=== PATIENT | male | born 1945 | race Caucasian/White ===

== ENCOUNTER 2017-06-19 06:00 | Day surgery (SDC) | payer MEDICARE, BC ==
[2017-06-18 17:54] VITALS: BMI 33.0
[2017-06-19] MEDS ORDERED: Phenylephrine 2.5% Ophth Soln 5 ML BOT ONE (06:13)
[2017-06-19] MEDS ORDERED: Cyclopentolate 1% Opth Drop 2 ML BOT ONE (06:13)
[2017-06-19] MEDS ORDERED: Fluorouracil 100 MG, Enoxaparin Sodium 25 MG, EPINEPHrine 0.3 MG in Ophthalmic Irrigati... IVPB SCH (06:14)
[2017-06-19] MEDS ORDERED: Midazolam HCl 2 mg/2 ml Vial ONE (06:29)
[2017-06-19] MEDS ORDERED: Lidocaine 2% 10 ML INJ ONE (06:29)
[2017-06-19] MEDS ORDERED: PROPOFOL 20 ML ONE (06:29)
[2017-06-19] MEDS ORDERED: Fentanyl 100 MCG/2 ML VIAL ONE (06:29)
--- NOTE | 2017-06-19 09:01 | OP ---
DATE OF PROCEDURE: 06/19/2017 PREOPERATIVE DIAGNOSIS: Macular hole rhegmatogenous retinal detachment, left eye. POSTOPERATIVE DIAGNOSIS: Macular hole rhegmatogenous retinal detachment, left eye. PROCEDURE: Complex retinal detachment repair, left eye. SURGEON: Dr. Ron Ramírez ANESTHESIA: Local with monitored anesthesia care. COMPLICATIONS: None. PROCEDURE IN DETAIL: The patient was identified in the preoperative holding area. Appropriate infor med consent for the planned surgical procedure on of the left eye had been obtained, the patient was transported to the operative suite. Appropriate cardiopulmonary monitoring was established. Local a nesthesia was obtained using retrobulbar and modified Van lid block using 50:50 mixture of 4% lidocai ne and 0.75% bupivacaine. The patient was prepped and draped in the usual sterile manner for ophthal daniel surgery on the left eye. Lid speculum was placed in the left eye. The 25-gauge trocar was place d in conjunctiva and sclera supratemporally, inferotemporally, and supranasally. Infusion line was p laced inferotemporally. Light pipe and vitreous cutter were inserted into the eye. Core vitrectomy was performed. Vitreus base was trimmed back 360 degrees using wide field viewing system. Retinal d etachment was noted at the 12 o'clock with a tear at 12 o'clock. Indocyanine green dye was infused i nto the posterior pole x1, identifying the epiretinal membrane and the internal limiting membrane. T his was elevated using membrane scraper and peeled from the macula in 1 piece. Attention was turned superior to the macular hole, the flap on the posterior pole was trimmed and all vitreous traction wa s removed. Drain retinotomy was created in the most posterior aspect of the retinal detachment. Com plete air fluid exchange was performed with 10 minutes being allowed for fluid to drain posteriorly. A 360 laser was placed using endolaser delivery device. A 28% sulfur hexafluoride gas was infused i nto the eyes. Trocars were removed. Supranasal sclerotomy was sutured closed. Eye was noted to oth erwise, hold pressure well. Retrobulbar Kenalog and antibiotic ointment was placed and the eye was p atched and shielded. The patient was taken to the postoperative recovery unit in good condition havi ng suffered no immediate perioperative complications. DISCHARGE INSTRUCTIONS: The patient was instructed to keep patch and shield on, avoid flat on back p ositioning advised to remain head up, and follow up in the morning with Dr. Ramírez.
[2017-06-19] MEDS ORDERED: Lidocaine 1% PF 5 ML VIAL ONE (16:32)
[2017-06-19] MEDS ORDERED: PROPOFOL 200 MG/20 ML VIAL ONE (16:32)
== END 2017-06-19 08:40 | disposition home or self-care (01) ==
LOC: SDC 06:00
PROVIDERS: ATTEND Ophthalmology Retina Specialist
PROC: 08T53ZZ Resection of Left Vitreous, Percutaneous Approach (ICD-10-PCS; principal; 2017-06-19)
PROC: 08NF3ZZ Release Left Retina, Percutaneous Approach (ICD-10-PCS; 2017-06-19)
DX: H35.342 Macular cyst, hole, or pseudohole, left eye (principal); H33.012 Retinal detachment with single break, left eye; M19.90 Unspecified osteoarthritis, unspecified site; Z88.0 Allergy status to penicillin; Z91.040 Latex allergy status; Z88.1 Allergy status to other antibiotic agents; Z79.82 Long term (current) use of aspirin; Z79.1 Long term (current) use of non-steroidal anti-inflammatories (NSAID); Z79.899 Other long term (current) drug therapy
CPT/HCPCS: 67025; J2001; J2250; J2704; J3010

== ENCOUNTER 2019-01-14 09:59 | Day surgery (SDC) | payer MEDICARE, BC ==
[2019-01-13 13:45] VITALS: BMI 34.8
[~2019-01-14 09:59] MED LIST: EPINEPHrine 0.3 MG in Ophthalmic Irrigation Solution 500 ML IVP SCH
[2019-01-14] MEDS ORDERED: Phenylephrine 2.5% Ophth Soln 5 ML BOT ONE (10:08)
[2019-01-14] MEDS ORDERED: Cyclopentolate 1% Opth Drop 2 ML BOT ONE (10:08)
[2019-01-14] MEDS ORDERED: Bupivacaine PF 0.75% SDV 10 ML ONE (10:10)
[2019-01-14] MEDS ORDERED: Lidocaine 4% PF 5 ML AMP ONE (10:10)
[2019-01-14] MEDS ORDERED: Triamcinolone 40 MG/ML VIAL ONE (10:10)
[2019-01-14] MEDS ORDERED: Maxitrol 0.1% Opth Oint 3.5 GM TUBE ONE (10:10)
[2019-01-14] MEDS ORDERED: Fentanyl 100 MCG/2 ML VIAL ONE (11:50)
[2019-01-14] MEDS ORDERED: PROPOFOL 20 ML ONE (11:50)
[2019-01-14] MEDS ORDERED: Midazolam HCl 2 mg/2 ml Vial ONE (11:50)
--- NOTE | 2019-01-14 15:14 | OP ---
DATE OF PROCEDURE: 01/14/2019 PREOPERATIVE DIAGNOSIS: Macula on rhegmatogenous retinal detachment, right eye. POSTOPERATIVE DIAGNOSIS: Macula on rhegmatogenous retinal detachment, right eye. NAME OF PROCEDURES PERFORMED: 1. 25-gauge pars plana vitrectomy, right eye. 2. Rhegmatogenous retinal detachment repair, right eye. 3. Endolaser, right eye. 4. 15% SF6 fill, right eye. ESTIMATED BLOOD LOSS: None. SPECIMENS REMOVED: None. COMPLICATIONS: None. ANESTHESIA: MAC with retrobulbar block. DESCRIPTION OF PROCEDURE: The patient was identified in the preoperative holding area, where the correct eye being the right eye was marked for surgery. The patient was taken to the operating room, where MAC anesthesia was induced. The retrobulbar block was administered to the right eye. The block consisted of 1:1 ratio of 4% lidocaine and 0.75% Marcaine. Total of 5 mL was administered. The right eye was then prepped and draped in the usual sterile fashion for surgery. A wire lid speculum was placed. A standard 25-gauge pars plana vitrectomy platform was fashioned with trocars placed approximately 3.5 mm from the limbus. The infusion was noted to be within the vitreous cavity prior to being turned on to infusion pressure of 30 mmHg. The light pipe microvitrector was introduced in the eye under visualization of the BIOM viewing system. A macula on rhegmatogenous retinal detachment was noted from approximately 12 o'clock to 3 o'clock. horseshoe retinal tears were noted at approximately 12:30. A careful core and peripheral shave vitrectomy were performed with the assistance of scleral depression. Great care was taken to relieve all traction off the aforementioned defects. Following vitrectomy, the defects were marked with endo cautery followed by a marking of a supranasal drainage retinotomy followed by opening with a flute needle. Subsequently, an air-fluid exchange was performed, which allowed for complete flattening of the retina. The Endolaser was used to provide barricade around the retinotomy site as well as around the aforementioned defects and a 360-degree cerclage with sparing of the 3 and 9 o'clock meridians. Following later, the flute needle was reintroduced in the eye to remove the residual subretinal fluid. An air-gas exchange was performed with 15% SF6. The cannulas were sequentially removed, and all sclerotomies were noted to be watertight. Subconjunctival Kenalog was injected. The wire lid speculum was removed followed by application of TobraDex ophthalmic ointment and a light patch and shield. The patient tolerated the procedure well, and was taken to the outpatient recovery area in good condition. Job ID: [id number]
== END 2019-01-14 13:43 | disposition home or self-care (01) ==
LOC: SDC 09:59
PROVIDERS: ATTEND Ophthalmology Retina Specialist
PROC: 08T43ZZ Resection of Right Vitreous, Percutaneous Approach (ICD-10-PCS; principal; 2019-01-14)
PROC: 08QE3ZZ Repair Right Retina, Percutaneous Approach (ICD-10-PCS; 2019-01-14)
DX: H33.021 Retinal detachment with multiple breaks, right eye (principal); G62.9 Polyneuropathy, unspecified; M19.90 Unspecified osteoarthritis, unspecified site; Z79.82 Long term (current) use of aspirin; Z79.899 Other long term (current) drug therapy; Z88.0 Allergy status to penicillin; Z88.1 Allergy status to other antibiotic agents; Z91.040 Latex allergy status
CPT/HCPCS: 67025; J0171; J2001; J2250; J2704; J3010; J3301; J3490

== ENCOUNTER 2019-02-02 09:43 | Day surgery (SDC) | payer MEDICARE, BC ==
[2019-02-01 13:32] VITALS: BMI 32.5
[~2019-02-02 09:43] MED LIST changes: +EPINEPHrine 0.3 MG in Ophthalmic Irrigation Solution 500 ML IRR SCH; -EPINEPHrine 0.3 MG in Ophthalmic Irrigation Solution 500 ML IVP SCH
[2019-02-02] MEDS ORDERED: Lidocaine 4% PF 5 ML AMP ONE (09:51)
[2019-02-02] MEDS ORDERED: Bupivacaine PF 0.75% SDV 10 ML ONE (09:51)
[2019-02-02] MEDS ORDERED: Lidocaine 1% PF 5 ML VIAL ONE (09:51)
[2019-02-02] MEDS ORDERED: Triamcinolone 40 MG/ML VIAL ONE (09:51)
[2019-02-02] MEDS ORDERED: PROPOFOL 200 MG/20 ML VIAL ONE (09:51)
[2019-02-02] MEDS ORDERED: Maxitrol 0.1% Opth Oint 3.5 GM TUBE ONE (09:51)
[2019-02-02] MEDS ORDERED: Cyclopentolate 1% Opth Drop 2 ML BOT ONE (10:21)
[2019-02-02] MEDS ORDERED: Phenylephrine 2.5% Ophth Soln 5 ML BOT ONE (10:21)
[2019-02-02] MEDS ORDERED: Fentanyl 100 MCG/2 ML VIAL ONE (11:35)
[2019-02-02] MEDS ORDERED: Midazolam HCl 2 mg/2 ml Vial ONE (11:35)
--- NOTE | 2019-02-02 14:09 | OP ---
DATE OF PROCEDURE: 02/02/2019 PRINCIPAL PREOPERATIVE DIAGNOSIS: Total tractional retinal detachment, right eye. POSTOPERATIVE DIAGNOSIS: Total tractional retinal detachment, right eye. NAME OF PROCEDURES PERFORMED: 1. 25-gauge pars plana vitrectomy, right eye. 2. Retinal detachment repair, right eye. 3. Endolaser, right eye. 4. Silicone oil fill, right eye. ESTIMATED BLOOD LOSS: None. SPECIMENS REMOVED: None. COMPLICATIONS: None. ANESTHESIA: MAC with retrobulbar block. SUMMARY OF THE OPERATION: The patient was identified in the preoperative holding area, where the correct eye being the right eye was marked for surgery. The patient was taken to the operating room, where MAC anesthesia was induced. A retrobulbar block was administered to the right eye. The block consisted of 1:1 ratio of 4% lidocaine and 0.75% Marcaine. A total of 5 mL was administered. The right eye was prepped and draped in the usual sterile ophthalmic fashion for surgery. A wire-clip lid speculum was placed. A standard 25-gauge pars plana vitrectomy platform was fashioned with trocars placed approximately 3.5 mm from the limbus. The infusion was noted to be within the vitreous cavity prior to being turned on to an infusion pressure of 30 mmHg. The light pipe and microvitrector were introduced in the eye under visualization of the BIOM viewing system. A peripheral shave vitrectomy was performed in the previously vitrectomized eye. A total macula-off rhegmatogenous retinal detachment was noted with the open retinotomy site at approximately 12 o'clock superior to the supratemporal arcade. Additional grade C PVR was noted diffusely inferiorly as well as nasally. This vitreoretinopathy was gently removed using the MaxGrip forceps. No defects were created during the process. This allowed for significant relaxation of the retina. A 360-degree scleral depressed exam of the periphery revealed no other defects. Following completion of membrane peeling, an air-fluid exchange was performed, which allowed for complete flattening of the retina. Endolaser was used to provide barrier around the retinotomy site as well as slightly posterior to the preexisting laser. Following Endolaser, the flute needle was reintroduced in the eye to remove any residual subretinal fluid. A complete silicone oil fill was subsequently achieved. The cannulas were sequentially removed and all sclerotomies were sutured with 8-0 Vicryl suture. Following suturing, all sclerotomies were noted to be a little tight. Subconjunctival Kenalog was injected. The wire-clip lid speculum was removed followed by application of TobraDex ophthalmic ointment and a light patch and shield. The patient tolerated the procedure well and was taken to outpatient recovery area in good condition. Job ID: [id number]
== END 2019-02-02 13:40 | disposition home or self-care (01) ==
LOC: SDC 09:43
PROVIDERS: ATTEND Ophthalmology Retina Specialist
PROC: 08T43ZZ Resection of Right Vitreous, Percutaneous Approach (ICD-10-PCS; principal; 2019-02-02)
DX: H33.051 Total retinal detachment, right eye (principal); M19.90 Unspecified osteoarthritis, unspecified site; Z79.1 Long term (current) use of non-steroidal anti-inflammatories (NSAID); Z79.82 Long term (current) use of aspirin; Z79.899 Other long term (current) drug therapy; Z88.0 Allergy status to penicillin; Z91.048 Other nonmedicinal substance allergy status
CPT/HCPCS: J0171; J2001; J2250; J2704; J3010; J3301; J3490

== ENCOUNTER 2019-05-04 06:14 | Day surgery (SDC) | payer MEDICARE, BC ==
[2019-05-03 10:49] VITALS: BMI 32.3
[2019-05-04] MEDS ORDERED: Midazolam HCl 2 mg/2 ml Vial ONE (06:22)
[2019-05-04] MEDS ORDERED: Fentanyl 100 MCG/2 ML VIAL ONE (06:22)
[2019-05-04] MEDS ORDERED: Phenylephrine 2.5% Ophth Soln 5 ML BOT ONE (07:00)
[2019-05-04] MEDS ORDERED: Cyclopentolate 1% Opth Drop 2 ML BOT ONE (07:00)
[2019-05-04] MEDS ORDERED: Lidocaine 4% PF 5 ML AMP ONE (10:10)
[2019-05-04] MEDS ORDERED: Bupivacaine PF 0.75% SDV 10 ML ONE (10:10)
[2019-05-04] MEDS ORDERED: PROPOFOL 200 MG/20 ML VIAL ONE (10:10)
[2019-05-04] MEDS ORDERED: Triamcinolone 40 MG/ML VIAL ONE (10:10)
[2019-05-04] MEDS ORDERED: Indocyanine Green 25 MG/10 ML VIAL ONE (10:10)
[2019-05-04] MEDS ORDERED: Maxitrol 0.1% Opth Oint 3.5 GM TUBE ONE (10:10)
--- NOTE | 2019-05-04 14:55 | OP ---
DATE OF PROCEDURE: 05/04/2019 PRINCIPAL PREOPERATIVE DIAGNOSES: 1. Epiretinal membrane, right eye. 2. Silicone oil status post retinal detachment repair, right eye. ESTIMATED BLOOD LOSS: None. SPECIMENS REMOVED: None. COMPLICATIONS: None. ANESTHESIA: MAC with retrobulbar block. SUMMARY OF OPERATION: The patient was identified in the preoperative holding area where the correct eye being the right eye was marked for surgery. The patient was taken to the operating room where MAC anesthesia was induced. A retrobulbar block was administered to the right eye. The block consisted of 1:1 ratio of 4% lidocaine and 0.75% Marcaine. Total of 5 mL was administered. The right eye was then prepped and draped in the usual sterile ophthalmic fashion for surgery. A wire-clip lid speculum was placed. A standard 25-gauge pars plana vitrectomy platform was fashioned with trocars placed approximately 3.5 mm from the limbus. The infusion was noted to be within the vitreous cavity prior to being turned on to an infusion pressure of 40 mmHg. The silicone oil extrusion device was inserted in the eye to remove the majority of the silicone oil. Subsequently, the light pipe and a flute needle were introduced in the eye under visualization of the BIOM viewing system. Three sequential air-fluid exchanges were performed to remove any residual silicone oil. The retina was noted to be flat and attached with a significant epiretinal membrane covering entire span of the macula. ICG dye was used to stain the internal limiting membrane. Using the Jj ILM forceps, the internal limiting membrane/epiretinal membrane peel was performed in a circumferential fashion about the fovea. The peel extended approximately 2 disk diameters in radius circumferentially. Following peeling, the microvitrector was reintroduced in the eye to remove any residual vitreous debris. The cannulas were sequentially removed with suturing required for all sclerotomies with 8-0 Vicryl suture. Following suturing, all sclerotomies were noted to be watertight. Subconjunctival Kenalog was injected. The wire-clip lid speculum was removed followed by application of Tobradex ophthalmic ointment and light patch and shield. The patient tolerated the procedure well and was taken to outpatient recovery area in good condition. Job ID: [id number]
== END 2019-05-04 10:05 | disposition home or self-care (01) ==
LOC: SDC 06:14
PROVIDERS: ATTEND Ophthalmology Retina Specialist
PROC: 08T43ZZ Resection of Right Vitreous, Percutaneous Approach (ICD-10-PCS; principal; 2019-05-04)
PROC: 08NE3ZZ Release Right Retina, Percutaneous Approach (ICD-10-PCS; 2019-05-04)
PROC: 08P Eye, Removal (ICD-10-PCS; 2019-05-04)
DX: H35.371 Puckering of macula, right eye (principal); G62.9 Polyneuropathy, unspecified; Z88.0 Allergy status to penicillin; Z88.1 Allergy status to other antibiotic agents; Z91.040 Latex allergy status; Z98.890 Other specified postprocedural states
CPT/HCPCS: J0171; J2001; J2250; J2704; J3010; J3301; J3490

== ENCOUNTER 2019-05-11 10:36 | Day surgery (SDC) | payer MEDICARE, BC ==
[2019-05-10 14:07] VITALS: BMI 32.1
[2019-05-11] MEDS ORDERED: Cyclopentolate 1% Opth Drop 2 ML BOT FS SCH (10:49)
[2019-05-11] MEDS ORDERED: Phenylephrine 2.5% Ophth Soln 5 ML BOT FS SCH (10:49)
[2019-05-11] MEDS ORDERED: Maxitrol 0.1% Opth Oint 3.5 GM TUBE ONE (10:55)
[2019-05-11] MEDS ORDERED: Bupivacaine PF 0.75% SDV 10 ML ONE (10:55)
[2019-05-11] MEDS ORDERED: Triamcinolone 40 MG/ML VIAL ONE (10:55)
[2019-05-11] MEDS ORDERED: Lidocaine 4% PF 5 ML AMP ONE (10:55)
[2019-05-11] MEDS ORDERED: Cyclopentolate 1% Opth Drop 2 ML BOT ONE (10:57)
[2019-05-11] MEDS ORDERED: Phenylephrine 2.5% Ophth Soln 5 ML BOT ONE (10:58)
[2019-05-11] MEDS ORDERED: Midazolam HCl 2 mg/2 ml Vial ONE (13:17)
[2019-05-11] MEDS ORDERED: Fentanyl 100 MCG/2 ML VIAL ONE (13:17)
[2019-05-11] MEDS ORDERED: PROPOFOL 20 ML ONE (13:28)
--- NOTE | 2019-05-11 15:36 | OP ---
DATE OF PROCEDURE: 05/11/2019 PRINCIPAL PREOPERATIVE DIAGNOSES: Grade C proliferative vitreoretinopathy; total retinal detachment, right eye. POSTOPERATIVE DIAGNOSES: Grade C proliferative vitreoretinopathy; total retinal detachment, right eye. PROCEDURES PERFORMED: 1. 25-gauge pars plana vitrectomy, right eye. 2. Grade C proliferative vitreoretinopathy removal, right eye. 3. Retinal detachment repair, right eye. 4. Endolaser, right eye. 5. Silicone oil fill, right eye. ESTIMATED BLOOD LOSS: None. SPECIMENS REMOVED: None. COMPLICATIONS: None. ANESTHESIA: MAC with subtenon's block. DESCRIPTION OF PROCEDURE: The patient was identified in the preoperative holding area. The correct eye being the right eye was marked for surgery. The patient was taken to the operating room, where MAC anesthesia was induced. The right eye was prepped and draped in usual sterile ophthalmic fashion for surgery. A wire-clip lid speculum was placed. Then, inferonasal conjunctival peritomy was fashioned with Anne Marie scissors for administration of subtenon's block. The block consisted of 1:1 ratio of 4% lidocaine and 0.75% Marcaine. Total of 5 mL was administered. A standard 25-gauge pars plana vitrectomy platform was fashioned with trocars placed approximately 3.5 mm from the limbus. The infusion was noted to be within the vitreous cavity prior to being turned on to infusion pressure of 30 mmHg. The light pipe Micro vitrector was introduced in the eye under visualization of the BIOM viewing system. A total tractional retinal detachment was noted with a defect at approximately 3 o'clock. Significant grade C proliferative vitreoretinopathy was noted at 3 o'clock as well as extending inferiorly with diffuse fibrosis. A limited peripheral shave vitrectomy was performed in this previously vitrectomized eye. Using The Jj MaxGrip forceps and fiberoptic, the grade C proliferative vitreoretinopathy was gently lifted off and removed from the surface of the retina. This allowed for significant relaxation of the retina. Using the endocautery, the aforementioned defects were marked, and a superonasal drainage retinotomy was created. This was subsequently opened with a flute needle. An air-fluid exchange was performed, which allowed for complete flattening of the retina. Using endolaser, barricade around the retinotomy site as well as around the aforementioned defect was performed. Following laser, the flute needle was re-introduced in the eye to remove any residual subretinal fluid. A complete silicone oil fill was subsequently achieved. The cannulas were sequentially removed. All sclerotomies were sutured with 8-0 Vicryl suture. Following suturing, all sclerotomies were noted to be oil tight. Subconjunctival Kenalog was injected. The wire-clip lid speculum was removed followed by application of TobraDex ophthalmic ointment and a light patch and shield. The patient tolerated the procedure well and was taken to outpatient recovery in good condition. Job ID: [id number]
== END 2019-05-11 15:05 | disposition home or self-care (01) ==
LOC: SDC 10:36
PROVIDERS: ATTEND Ophthalmology Retina Specialist
PROC: 08T43ZZ Resection of Right Vitreous, Percutaneous Approach (ICD-10-PCS; principal; 2019-05-11)
DX: H33.41 Traction detachment of retina, right eye (principal); M19.90 Unspecified osteoarthritis, unspecified site; Z79.82 Long term (current) use of aspirin; Z79.899 Other long term (current) drug therapy; Z88.0 Allergy status to penicillin; Z88.1 Allergy status to other antibiotic agents; Z91.040 Latex allergy status
CPT/HCPCS: 67113; C1814; J0171; J2001; J2250; J2704; J3010; J3301; J3490

== ENCOUNTER 2019-08-27 06:44 | Outpatient (CLI) | payer MEDICARE, BC, OTHER ==
[2019-08-28 11:34] LABS: SARS-CoV-2 MS2 Positive; SARS-CoV-2 N Gene Negative; SARS-CoV-2 S Gene Negative; SARS-CoV-2 orf1ab Negative
== END 2019-08-27 06:45 | disposition home or self-care (01) ==
LOC: LABBT 06:44
PROVIDERS: ATTEND Ophthalmology Retina Specialist
DX: Z01.812 Encounter for preprocedural laboratory examination (principal); Z11.59 Encounter for screening for other viral diseases
CPT/HCPCS: 87635; U0003

== ENCOUNTER 2019-08-31 07:41 | Day surgery (SDC) | payer MEDICARE, BC ==
[2019-08-26 12:19] VITALS: BMI 32.1
[2019-08-31] MEDS ORDERED: Cyclopentolate 1% Opth Drop 2 ML BOT ONE (07:56)
[2019-08-31] MEDS ORDERED: Phenylephrine 2.5% Ophth Soln 5 ML BOT ONE (07:56)
[2019-08-31] MEDS ORDERED: Fentanyl 100 MCG/2 ML VIAL ONE (10:15)
[2019-08-31] MEDS ORDERED: Bupivacaine PF 0.75% SDV 10 ML ONE (10:59)
[2019-08-31] MEDS ORDERED: Triamcinolone 40 MG/ML VIAL ONE (10:59)
[2019-08-31] MEDS ORDERED: Tobramycin/Dexamethasone Ophth Oint 3.5 GM TUBE ONE (10:59)
[2019-08-31] MEDS ORDERED: Lidocaine 4% PF 5 ML AMP ONE (10:59)
[2019-08-31] MEDS ORDERED: PROPOFOL 200 MG/20 ML VIAL ONE (10:59)
--- NOTE | 2019-08-31 14:41 | OP ---
DATE OF PROCEDURE: 08/31/2019 PREOPERATIVE DIAGNOSIS: Silicone oil, status post retinal detachment repair, right eye. POSTOPERATIVE DIAGNOSIS: Silicone oil, status post retinal detachment repair, right eye. PROCEDURES PERFORMED: 1. A 25-gauge pars plana vitrectomy, right eye. 2. Silicone oil removal, right eye. 3. Air-fluid exchange x3, right eye. ESTIMATED BLOOD LOSS: None. SPECIMENS REMOVED: None. COMPLICATIONS: None. DESCRIPTION OF PROCEDURE: The patient identified in the preoperative holding area, where correct eye being the right eye was marked for surgery. The patient was taken to the operating room, where MAC anesthesia was induced. The right eye was prepped and draped in usual sterile ophthalmic fashion for surgery. A wire-clip lid speculum was placed. An inferonasal conjunctival peritomy was fashioned with Anne Marie scissors for administration of sub-Tenon's block. The block consisted of 1:1 ratio of 4% lidocaine and 0.75% Marcaine. A total of 5 mL was administered. A standard 25-gauge pars plana vitrectomy platform was fashioned with trocars placed approximately 3.5 mm from the limbus. The infusion was noted to be within the vitreous cavity prior to being turned on to infusion pressure of 40 mmHg. The silicone oil extrusion device was inserted in the eye to remove the majority of silicone oil. Following the majority of the silicone oil removal, the light pipe and flute needle were introduced in the eye under visualization of the BIOM viewing system. The retina was then to be flat and attached with good peripheral retinal laser. Three sequential air-fluid exchanges were performed to remove any residual silicone oil. The cannulas were sequentially removed and all sclerotomies were sutured with 8-0 Vicryl suture. Following suturing, all sclerotomies were noted to be watertight. Subconjunctival Kenalog was injected. The wire-clip lid speculum was removed followed by application of TobraDex ophthalmic ointment and a light patch and shield. The patient tolerated the procedure well and was taken to the outpatient recovery area in good condition. Job ID: [id number]
== END 2019-08-31 10:42 | disposition home or self-care (01) ==
LOC: SDC 07:41
PROVIDERS: ATTEND Ophthalmology Retina Specialist
PROC: 08T43ZZ Resection of Right Vitreous, Percutaneous Approach (ICD-10-PCS; principal; 2019-08-31)
PROC: 08943ZZ Drainage of Right Vitreous, Percutaneous Approach (ICD-10-PCS; 2019-08-31)
DX: H43.391 Other vitreous opacities, right eye (principal); M19.90 Unspecified osteoarthritis, unspecified site; G62.9 Polyneuropathy, unspecified; Z79.1 Long term (current) use of non-steroidal anti-inflammatories (NSAID); Z79.899 Other long term (current) drug therapy; Z79.82 Long term (current) use of aspirin; Z88.0 Allergy status to penicillin; Z88.1 Allergy status to other antibiotic agents; Z91.040 Latex allergy status; Z98.890 Other specified postprocedural states
CPT/HCPCS: J0171; J2001; J2704; J3010; J3301; J3490

== ENCOUNTER 2019-09-13 08:18 | Day surgery (SDC) | payer MEDICARE, BC ==
[2019-09-13] MEDS ORDERED: Midazolam HCl 2 mg/2 ml Vial ONE (08:52)
[2019-09-13] MEDS ORDERED: Fentanyl 100 MCG/2 ML VIAL ONE (08:52)
[2019-09-13] MEDS ORDERED: Phenylephrine 2.5% Ophth Soln 5 ML BOT ONE (09:10)
[2019-09-13] MEDS ORDERED: Cyclopentolate 1% Opth Drop 2 ML BOT ONE (09:10)
[2019-09-13] MEDS ORDERED: Cyclopentolate 1% Opth Drop 2 ML BOT FS SCH (09:33)
[2019-09-13] MEDS ORDERED: EPINEPHrine 0.3 MG in Ophthalmic Irrigation Solution 500 ML IRR SCH (09:33)
[2019-09-13] MEDS ORDERED: Phenylephrine 2.5% Ophth Soln 5 ML BOT FS SCH (09:33)
[2019-09-13] MEDS ORDERED: Maxitrol 0.1% Opth Oint 3.5 GM TUBE ONE (11:37)
[2019-09-13] MEDS ORDERED: Bupivacaine PF 0.75% SDV 10 ML ONE (11:37)
[2019-09-13] MEDS ORDERED: PROPOFOL 200 MG/20 ML VIAL ONE (11:37)
[2019-09-13] MEDS ORDERED: Lidocaine 4% PF 5 ML AMP ONE (11:37)
[2019-09-13] MEDS ORDERED: Triamcinolone 40 MG/ML VIAL ONE (11:37)
--- NOTE | 2019-09-13 14:59 | OP ---
DATE OF PROCEDURE: 09/13/2019 PRINCIPAL PREOPERATIVE DIAGNOSIS: Macula-off rhegmatogenous retinal detachment, right eye. POSTOPERATIVE DIAGNOSIS: Macula-off rhegmatogenous retinal detachment, right eye. PROCEDURES PERFORMED: 1. A 25-gauge pars plana vitrectomy, right eye. 2. Rhegmatogenous retinal detachment repair, right eye. 3. Endolaser, right eye. 4. 15% fill, right eye. ESTIMATED BLOOD LOSS: None. SPECIMENS REMOVED: None. COMPLICATIONS: None. ANESTHESIA: MAC with sub-Tenon's block. DESCRIPTION OF PROCEDURE: The patient was identified in the preoperative holding area, where the correct eye being the right eye was marked for surgery. The patient was taken to the operating room, where MAC anesthesia was induced. The right eye was prepped and draped in the usual sterile ophthalmic fashion for surgery. A wire-clip lid speculum was placed. An inferonasal conjunctival peritomy was fashioned with Anne Marie scissors after administration of sub-Tenon's block. The block consisted of 1:1 ratio of 4% lidocaine and 0.75% Marcaine. Total of 5 mL was administered. A standard 25-gauge pars plana vitrectomy platform was fashioned with trocars placed approximately 3.5 mm from the limbus. The infusion was noted to be within the vitreous cavity prior to being turned on to infusion pressure of 30 mmHg. The light pipe and microvitrector were introduced in the eye under visualization of the BIOM viewing system. A macula-off rhegmatogenous retinal detachment was noted from approximately 3 o'clock to 12 o'clock. A peripheral shave vitrectomy was performed, which was limited in this previously vitrectomized eye. Following completion of vitrectomy, a 360-degree scleral depressed exam of the periphery revealed no defects to the peripheral retina. A macular hole was noted to be the only defect found on close examination. A superotemporal drainage retinotomy was created with the Endo-cautery followed by opening with a flute needle. An air-fluid exchange was subsequently performed, which allowed for complete flattening of the retina. Using the endolaser, barricade was placed around the drainage retinotomy site as well as 2 to 3 rows of laser posterior to the preexisting laser. Following completion of endolaser, the flute needle was reintroduced in the eye to remove any residual subretinal fluid. Subsequently, an air-gas exchange was performed with 15% . The cannulas were sequentially removed and all sclerotomies were sutured with 8-0 Vicryl suture. Following suturing, all sclerotomies were noted to be gas tight. Subconjunctival Kenalog was injected. The wire-clip lid speculum was removed followed by application of TobraDex ophthalmic ointment and a light patch and shield. The patient tolerated the procedure well and was taken to outpatient recovery area in good condition. Job ID: [id number]
== END 2019-09-13 11:35 | disposition home or self-care (01) ==
LOC: SDC 08:18
PROVIDERS: ATTEND Ophthalmology Retina Specialist
PROC: 08T43ZZ Resection of Right Vitreous, Percutaneous Approach (ICD-10-PCS; principal; 2019-09-13)
PROC: 08QE3ZZ Repair Right Retina, Percutaneous Approach (ICD-10-PCS; 2019-09-13)
DX: H33.031 Retinal detachment with giant retinal tear, right eye (principal); H35.341 Macular cyst, hole, or pseudohole, right eye; M19.90 Unspecified osteoarthritis, unspecified site; G62.9 Polyneuropathy, unspecified; Z88.0 Allergy status to penicillin; Z88.1 Allergy status to other antibiotic agents; Z91.040 Latex allergy status
CPT/HCPCS: 67025; J0171; J2001; J2250; J2704; J3010; J3301; J3490

== ENCOUNTER 2019-12-30 07:39 | Outpatient (CLI) | payer MEDICARE, BC, OTHER ==
[2019-12-30 17:06] LABS: SARS-CoV-2 MS2 Positive; SARS-CoV-2 N Gene Negative; SARS-CoV-2 S Gene Negative; SARS-CoV-2 by NAA Not Detected (NotDetected); SARS-CoV-2 orf1ab Negative
== END 2019-12-30 07:40 | disposition home or self-care (01) ==
LOC: LABBT 07:39
PROVIDERS: ATTEND Family Medicine
DX: H54.7 Unspecified visual loss (principal); Z20.828 Contact with and (suspected) exposure to other viral communicable diseases
CPT/HCPCS: 87635; U0003

== ENCOUNTER 2020-01-04 11:42 | Day surgery (SDC) | payer MEDICARE, BC ==
[2020-01-03 10:19] VITALS: BMI 32.1
[~2020-01-04 11:42] MED LIST changes: +Fentanyl 100 MCG/2 ML VIAL ONE
[2020-01-04] MEDS ORDERED: Phenylephrine 2.5% Ophth Soln 5 ML BOT ONE (12:08)
[2020-01-04] MEDS ORDERED: Cyclopentolate 1% Opth Drop 2 ML BOT ONE (12:08)
[2020-01-04] MEDS ORDERED: Bupivacaine PF 0.75% SDV 10 ML ONE (12:22)
[2020-01-04] MEDS ORDERED: Ondansetron PF 4 MG/2 ML Vial ONE ×3 (12:22→13:03)
[2020-01-04] MEDS ORDERED: Triamcinolone 40 MG/ML VIAL ONE (12:22)
[2020-01-04] MEDS ORDERED: PROPOFOL 200 MG/20 ML VIAL ONE (12:22)
[2020-01-04] MEDS ORDERED: Metoclopramide HCl 10 MG/2 ML VIAL ONE (12:22)
[2020-01-04] MEDS ORDERED: Lidocaine 4% PF 5 ML AMP ONE (12:22)
[2020-01-04] MEDS ORDERED: Dexamethasone 20 MG/5 ML VIAL ONE (12:22)
[2020-01-04] MEDS ORDERED: Maxitrol 0.1% Opth Oint 3.5 GM TUBE ONE (12:22)
[2020-01-04] MEDS ORDERED: Lidocaine 1% PF 5 ML VIAL ONE (12:22)
[2020-01-04] MEDS ORDERED: Famotidine/PF 20 mg/2ml Vial ONE ×2 (13:03→13:04)
--- NOTE | 2020-01-04 23:11 | OP ---
DATE OF PROCEDURE: 01/04/2020 PRINCIPAL PREOPERATIVE DIAGNOSIS: Macula-off combined tractional and rhegmatogenous retinal detachment, right eye. POSTOPERATIVE DIAGNOSIS: Macula-off combined tractional and rhegmatogenous retinal detachment, right eye. PROCEDURES PERFORMED: 1. 42 band scleral buckle, right eye. 2. 25-gauge pars plana vitrectomy, right eye. 3. Endolaser, right eye. 4. Silicone oil fill, right eye. ESTIMATED BLOOD LOSS: None. SPECIMENS REMOVED: None. COMPLICATIONS: None. ANESTHESIA: LMA with sub-Tenon's block. DESCRIPTION OF PROCEDURE: The patient was identified in the preoperative holding area. The correct eye being the right eye was marked for surgery. The patient was taken to the operating room, where LMA was induced. The right eye was prepped and draped in the usual sterile ophthalmic fashion for surgery. A wire-clip lid speculum was placed. A 360-degree conjunctival peritomy was fashioned with Anne Marie scissors. Endo cautery was used to provide hemostasis as needed. The four rectus muscles were isolated with 2-0 silk suture. Attention was turned to the microvitrector. A standard 25-gauge pars plana vitrectomy platform was fashioned with the trocars placed approximately 3.5 mm from the limbus. The infusion was noted to be within the vitreous cavity prior to being turned on to an infusion pressure of 30 mmHg. The light pipe and microvitrector were introduced in the eye under visualization of the BIOM viewing system. A macula-off combined tractional/rhegmatogenous retinal detachment was noted from approximately 1 o'clock to 11 o'clock. Grade C proliferative vitreoretinopathy was noted to the temporal to the macula. A defect was noted approximately 10 o'clock as well as the macular hole centrally. Using the MAXGrip forceps, the temporal proliferative vitreoretinopathy was gently dissected and removed, allowing for significant relaxation of the retina. Attention was subsequently turned back to the scleral buckle, where a mattress suture was placed in the diagonal quadrants with 5-0 Mersilene suture. A 42 band scleral buckle was brought onto the field and threaded within the mattress sutures as well as underneath the rectus muscles and was subsequently tied with the sleeve supranasally. An air-fluid exchange was performed, which allowed for complete flattening of the retina. Endolaser was used to provide barricade around the defect as well as a 360 cerclage posterior to the preexisting laser. Following Endolaser, the flute needle was reintroduced in the eye to remove any residual subretinal fluid. Complete oil fill was subsequently achieved. The cannulas were sequentially removed and sclerotomies were sutured with 8-0 Vicryl suture. A sub-Tenon's block was subsequently placed. The block consisted of 1:1 ratio of 4% lidocaine and 0.75% Marcaine. A total of 5 mL was administered. The conjunctiva was subsequently brought forward and closed over the buckle with 8-0 Vicryl suture in interrupted fashion. Subconjunctival Kenalog was injected. The wire-clip lid speculum was removed followed by application of TobraDex ophthalmic ointment and a light patch and shield. The patient tolerated the procedure well, was taken to outpatient recovery area in good condition. Job ID: [id number]
== END 2020-01-04 18:45 | disposition home or self-care (01) ==
LOC: SDC 11:42
PROVIDERS: ATTEND Ophthalmology Retina Specialist
PROC: 08T43ZZ Resection of Right Vitreous, Percutaneous Approach (ICD-10-PCS; principal; 2020-01-04)
DX: H33.41 Traction detachment of retina, right eye (principal); H33.021 Retinal detachment with multiple breaks, right eye; H35.341 Macular cyst, hole, or pseudohole, right eye; G62.9 Polyneuropathy, unspecified; M19.90 Unspecified osteoarthritis, unspecified site; Z79.82 Long term (current) use of aspirin; Z79.899 Other long term (current) drug therapy; Z88.0 Allergy status to penicillin; Z88.1 Allergy status to other antibiotic agents; Z91.040 Latex allergy status
CPT/HCPCS: 67113; C1814; J0171; J1100; J2001; J2405; J2704; J2765; J3010; J3301; J3490; S0028

== ENCOUNTER 2020-05-25 07:14 | Outpatient (CLI) | payer MEDICARE, BC | END 2020-05-25 07:15 | disposition home or self-care (01) | LOC: LABBT 07:14 | PROVIDERS: ATTEND Family Medicine | DX: H54.7 Unspecified visual loss (principal); Z20.822 Contact with and (suspected) exposure to COVID-19 | CPT/HCPCS: U0003; U0005; 87635 ==

== ENCOUNTER 2020-05-30 09:53 | Day surgery (SDC) | payer MEDICARE, BC ==
[2020-05-29 13:05] VITALS: BMI 33.7
[~2020-05-30 09:53] MED LIST changes: +Midazolam HCl 2 mg/2 ml Vial ONE; +PROPOFOL 20 ML ONE
[2020-05-30] MEDS ORDERED: Scopolamine 1.5 mg/72 hour Patch ONE (10:40)
[2020-05-30] MEDS ORDERED: Phenylephrine 2.5% Ophth Soln 5 ML BOT ONE (10:41)
[2020-05-30] MEDS ORDERED: Cyclopentolate 1% Opth Drop 2 ML BOT ONE (10:41)
[2020-05-30] MEDS ORDERED: Maxitrol 0.1% Opth Oint 3.5 GM TUBE ONE (12:03)
[2020-05-30] MEDS ORDERED: Lidocaine 4% PF 5 ML AMP ONE (12:03)
[2020-05-30] MEDS ORDERED: PROPOFOL 200 MG/20 ML VIAL ONE (12:03)
[2020-05-30] MEDS ORDERED: Bupivacaine PF 0.75% SDV 10 ML ONE (12:03)
[2020-05-30] MEDS ORDERED: Triamcinolone 40 MG/ML VIAL ONE (12:03)
[2020-05-30] MEDS ORDERED: Lidocaine 1% PF 5 ML VIAL ONE (12:03)
[2020-05-30] MEDS ORDERED: CEFAZOLIN 1 GM VIAL ONE (12:03)
== END 2020-05-30 13:15 | disposition home or self-care (01) ==
LOC: SDC 09:53
PROVIDERS: ATTEND Ophthalmology Retina Specialist
PROC: 08P Eye, Removal (ICD-10-PCS; principal; 2020-05-30)
DX: T85.398A Other mechanical complication of other ocular prosthetic devices, implants and grafts, initial encounter (principal); H53.141 Visual discomfort, right eye; H43.311 Vitreous membranes and strands, right eye; M19.90 Unspecified osteoarthritis, unspecified site; G62.9 Polyneuropathy, unspecified; Z79.82 Long term (current) use of aspirin; Z79.899 Other long term (current) drug therapy; Z88.0 Allergy status to penicillin; Z88.1 Allergy status to other antibiotic agents; Z91.040 Latex allergy status
CPT/HCPCS: J0171; J0690; J2250; J2704; J3010; J3301; J3490

== ENCOUNTER 2020-06-16 13:27 | Outpatient (CLI) | payer MEDICARE, BC ==
[2020-06-17 01:18] LABS: SARS-CoV-2 PCR by NAA Not Detected (NotDetected)
== END 2020-06-16 13:28 | disposition home or self-care (01) ==
LOC: LABBT 13:27
PROVIDERS: ATTEND Ophthalmology Retina Specialist
DX: Z01.812 Encounter for preprocedural laboratory examination (principal); H33.001 Unspecified retinal detachment with retinal break, right eye; Z20.822 Contact with and (suspected) exposure to COVID-19
CPT/HCPCS: U0003; U0005; 87635

== ENCOUNTER 2020-06-20 06:05 | Day surgery (SDC) | payer MEDICARE, BC ==
[2020-06-19 13:18] VITALS: BMI 33.0
[2020-06-20] MEDS ORDERED: Midazolam HCl 2 mg/2 ml Vial ONE ×2 (06:25→08:57)
[2020-06-20] MEDS ORDERED: Fentanyl 100 MCG/2 ML VIAL ONE ×2 (06:25→08:57)
[2020-06-20] MEDS ORDERED: Propofol 500 MG/50 ML VIAL ONE (06:25)
[2020-06-20] MEDS ORDERED: EPINEPHrine 0.3 MG in Ophthalmic Irrigation Solution 500 ML IRR SCH (06:30)
[2020-06-20] MEDS ORDERED: Phenylephrine 2.5% Ophth Soln 5 ML BOT ONE (06:48)
[2020-06-20] MEDS ORDERED: Cyclopentolate 1% Ophth Drops 15 ML BOT ONE (06:48)
[2020-06-20] MEDS ORDERED: PROPOFOL 200 MG/20 ML VIAL ONE (07:09)
[2020-06-20] MEDS ORDERED: Maxitrol 0.1% Opth Oint 3.5 GM TUBE ONE (07:09)
[2020-06-20] MEDS ORDERED: Bupivacaine PF 0.75% SDV 10 ML ONE (07:09)
[2020-06-20] MEDS ORDERED: Triamcinolone 40 MG/ML VIAL ONE (07:09)
[2020-06-20] MEDS ORDERED: Lidocaine 1% PF 5 ML VIAL ONE (07:09)
== END 2020-06-20 09:37 | disposition home or self-care (01) ==
LOC: SDC 06:05
PROVIDERS: ATTEND Ophthalmology Retina Specialist
PROC: 08T43ZZ Resection of Right Vitreous, Percutaneous Approach (ICD-10-PCS; principal; 2020-06-20)
PROC: 08QE3ZZ Repair Right Retina, Percutaneous Approach (ICD-10-PCS; 2020-06-20)
DX: H33.41 Traction detachment of retina, right eye (principal); M19.90 Unspecified osteoarthritis, unspecified site; G62.9 Polyneuropathy, unspecified; Z79.52 Long term (current) use of systemic steroids; Z79.82 Long term (current) use of aspirin; Z79.899 Other long term (current) drug therapy; Z88.0 Allergy status to penicillin; Z88.1 Allergy status to other antibiotic agents; Z91.040 Latex allergy status
CPT/HCPCS: C1814; J0171; J2250; J2704; J3010; J3301; J3490